=== PATIENT | male | born 1970 | race Caucasian/White ===

== ENCOUNTER 2019-10-10 13:16 | Emergency (ER) | payer OTHER ==
[~2019-10-10] VITALS: Ht 188 cm; Wt 111.3 kg
[2019-10-10 13:21] VITALS: BP 133/79
--- NOTE | 2019-10-10 14:00 | NUR ---
pt to CT, nadn at transport.
--- NOTE | 2019-10-10 14:39 | NUR ---
pt a&ox4, resps even and unlabored. pt states states he has to "concentrate harder" to see things, states it is not overtly blurry. neuro intact. pt speaking in full sentences without difficulty. pt awaiting CT results and dispo at this time.
--- NOTE | 2019-10-10 15:03 | NUR ---
PT DISCHARGED BY DR SINGH AND KORI MADISON
== END 2019-10-10 15:05 | disposition home or self-care (01) ==
LOC: ED 14:59
DX: S09.90XA Unspecified injury of head, initial encounter (principal); F07.81 Postconcussional syndrome; W22.8XXA Striking against or struck by other objects, initial encounter; Y93.89 Activity, other specified; Y92.89 Other specified places as the place of occurrence of the external cause; Y99.8 Other external cause status
CPT/HCPCS: 70450; 70486; 99284